=== PATIENT | female | born 1975 | race African-American/Black ===

== ENCOUNTER 2021-01-27 12:10 | Emergency (ER) | payer MEDICAID, OTHER ==
[~2021-01-27] VITALS: Ht 167.6 cm; Wt 97.5 kg
[2021-01-27] MEDS ORDERED: ONDANSETRON HCL 4 MG/2 ML VIAL IV ONE (12:45)
[2021-01-27] MEDS ORDERED: MORPHINE SULFATE 4 MG/ML SYR/VIAL IV ONE (12:45)
[2021-01-27 13:49] LABS: Basophils # (auto) 0 10 ^3/uL (0-0.2); Basophils % (auto) 0.4 % (0.0-2.0); Eosinophils # (auto) 0 10 ^3/uL (0-0.8); Eosinophils % (auto) 0.1 % (0.0-7.0); Hematocrit 34.7 % (36.0-46.0); Hemoglobin 12.2 g/dL (12.2-16.2); Lymphocytes # (auto) 0.9 10 ^3/uL (0.4-5.4); Lymphocytes % (auto) 10.1 % (10.0-50.0); Mean Corpuscular Hemoglobin 33.2 pg (28.0-32.0); Mean Corpuscular Hgb Conc. 35.3 g/dL (32.0-36.0); Mean Corpuscular Volume 94.1 fL (80.0-100.0); Monocytes # (auto) 0.6 10 ^3/uL (0-1.3); Monocytes % (auto) 6.7 % (0.0-12.0); Neutrophils # (auto) 7.7 10 ^3/uL (1.6-8.6); Neutrophils % (auto) 82.7 % (37.0-80.0); Red Blood Cells 3.68 10^6/uL (4.0-5.20); White Blood Cell 9.3 10^3/uL (4.4-10.8)
[2021-01-27 14:15] LABS: Albumin 3.3 g/dL (3.4-5.0); Anion Gap 8 (5-15); Blood Urea Nitrogen 9 mg/dL (7-18); Calcium 8.5 mg/dL (8.5-10.1); Carbon Dioxide 24 mmol/L (21-32); Chloride 106 mmol/L (98-107); Glucose 100 mg/dL (74-106); Lipase 106 U/L (73-393); Potassium 3.1 mmol/L (3.5-5.1); Sodium 138 mmol/L (136-145)
[2021-01-27 14:21] LABS: Alanine Aminotransferase 17 U/L (13-56); Alkaline Phosphatase 46 U/L (45-117); Aspartate Aminotransferase 12 U/L (15-37); Bilirubin, Total 2.6 mg/dL (0.2-1.0); GFR African American 140 mL/min; GFR Non-African American 116 mL/min; Total Protein 7.1 g/dL (6.4-8.2)
[2021-01-27] MEDS ORDERED: POTASSIUM CHL 20 Meq TABLET PO ONE ×2 (14:45→18:20)
[2021-01-27] MEDS ORDERED: HYDROmorphone HCL 2 MG/ML VL IV ONE (18:45)
[2021-01-27 18:47] LABS: Urine Bacteria FEW /hpf (None Seen); Urine Blood Negative /uL (Negative); Urine Mucus FEW (None Seen); Urine Specific Gravity 1.009 (1.001-1.035); Urine WBC 46 /hpf (0 - 5)
[2021-01-27] MEDS ORDERED: HYDROmorphone HCL 2 MG/ML VL ONE (18:48)
[2021-01-27 19:30] VITALS: BP 119/64
== END 2021-01-28 03:50 | disposition home or self-care (01) ==
LOC: ER 12:10
DX: N39.0 Urinary tract infection, site not specified (principal); K29.00 Acute gastritis without bleeding; R07.89 Other chest pain; E11.9 Type 2 diabetes mellitus without complications; Z20.822 Contact with and (suspected) exposure to COVID-19; Z88.5 Allergy status to narcotic agent; Z90.49 Acquired absence of other specified parts of digestive tract; Z98.890 Other specified postprocedural states
CPT/HCPCS: 36415; 74176; 80053; 81001; 83690; 83735; 84484; 85025; 87426; 93005; 96374; 96375; 99285; J1170; J2405

== ENCOUNTER 2024-01-21 08:14 | Emergency (ER) | payer MEDICAID ==
[~2024-01-21] VITALS: Ht 167.6 cm; Wt 102.0 kg
[2024-01-21 08:42] VITALS: BP 121/61; PULSE 76; RESP 19; TEMP 99.5; O2SAT 100
[2024-01-21] MEDS: KETOROLAC TROMETH 60MG/2ML VIAL IM ONE (08:51)
[2024-01-21] MEDS ORDERED: IBUP-1456 PO (09:32)
== END 2024-01-21 09:44 | disposition home or self-care (01) ==
LOC: ER 08:14
DX: S82.832A Other fracture of upper and lower end of left fibula, initial encounter for closed fracture (principal); Z88.6 Allergy status to analgesic agent; Z90.49 Acquired absence of other specified parts of digestive tract; W18.00XA Striking against unspecified object with subsequent fall, initial encounter; Y93.89 Activity, other specified; Y92.89 Other specified places as the place of occurrence of the external cause; Y99.8 Other external cause status
CPT/HCPCS: 29515; 73610; 96372; 99283; J1885